=== PATIENT | male | born 1930 | race Caucasian/White ===

== ENCOUNTER → 2017-04-09 | Outpatient (CLI) | payer MEDICARE, BC ==
[~2017-04-09] MED LIST: ALDACTONE25 MG PO; ASPIRIN325 MG PO; CARDURA2 MG PO; CARDURA8 MG PO; CENTRUM SILVER1 TAB PO; LOPRESSOR25 MG PO; NITROSTAT0.4 MG SL; NORVASC5 MG PO; PEPCID20 MG PO; RANEXA ER500 MG PO
[2017-04-09 12:26] LABS: ALBUMIN 3.6 gm/dL (3.5-5.0); TOTAL BILIRUBIN 1.5 mg/dL (0.0-1.5); TOTAL PROTEIN 7.2 g/dL (6.0-8.4)
== END | disposition disaster alternative care site (69) ==
LOC: LNHI 12:01
PROVIDERS: Internal Medicine Interventional Cardiology
DX: I48.0 Paroxysmal atrial fibrillation (principal); I25.10 Atherosclerotic heart disease of native coronary artery without angina pectoris; N18.9 Chronic kidney disease, unspecified